=== PATIENT | male | born 1960 | race Hispanic/Latino ===

== ENCOUNTER → 2019-08-27 | Day surgery (SDC) | payer BC ==
--- NOTE | 2019-08-23 12:00 | NUR ---
Pt arrived in general good physical health with spousee for interview of scheduled procedure. [employer] offered and declined. Review of medical history and current medications. Procedural consent, pre-op orders, and Hibiclens bath education completed. All questions clarified and or answered where appropriate. pt verbalizes understanding to include day of procedure expectations. - cgf
[2019-08-23 12:46] LABS: BASOPHILS # (AUTO) 0.1 (0.0-0.1); BASOPHILS % 0.8 % (0.0-1.0); EOSINOPHILS # (AUTO) 0.2 (0.0-0.4); EOSINOPHILS % 2.7 % (0.0-6.0); HEMATOCRIT 46.9 % (38.2-49.6); HEMOGLOBIN 16.1 g/dL (14.0-18.0); LYMPHOCYTES # (AUTO) 2.1 (1.0-3.2); LYMPHOCYTES % 30.9 % (18.0-39.1); MEAN CORPUSCULAR HEMOGLOBIN 30.5 pg (28-32); MEAN CORPUSCULAR HGB CONC 34.3 g/dL (31-35); MEAN CORPUSCULAR VOLUME 88.8 fL (81-99); MONOCYTES # (AUTO) 0.5 (0.2-0.8); MONOCYTES % 7.7 % (4.4-11.3); NEUTROPHILS # (AUTO) 3.8 (2.1-6.9); NEUTROPHILS % 57.1 % (38.7-80.0); PLATELET COUNT 153 x10e3/uL (140-360); RED BLOOD COUNT 5.28 x10e6/uL (4.3-5.7); RED CELL DISTRIBUTION WIDTH 12.6 % (11.7-14.4)
[2019-08-23 12:58] LABS: ALANINE AMINOTRANSFERASE 41 IU/L (0-55); ALBUMIN 4.1 g/dL (3.5-5.0); ALBUMIN/GLOBULIN RATIO 1.3 (0.8-2.0); ALKALINE PHOSPHATASE 79 IU/L (40-150); ANION GAP 13.8 mmol/L (8-16); BLOOD UREA NITROGEN 19 mg/dL (7-26); BUN/CREATININE RATIO 22 (6-25); CALCIUM 9.4 mg/dL (8.4-10.2); CARBON DIOXIDE 25 mmol/L (22-29); CHLORIDE 100 mmol/L (98-107); CREATININE, SERUM 0.88 mg/dL (0.72-1.25); EST GLOMERULAR FILTRATION RATE > 60 ML/MIN (60-); GLUCOSE 142 mg/dL (74-118); POTASSIUM 4.8 mmol/L (3.5-5.1); SODIUM 134 mmol/L (136-145)
[~2019-08-27] VITALS: Ht 182.9 cm; Wt 101.6 kg
[2019-08-27] VITALS (11 sets, daily range): BP systolic 113–155; BP diastolic 66–86
[~2019-08-27] MED LIST: ACETAMINOPHEN 325 MG TAB ONE; ASPIR 8181 MG PO; ASPIRIN 325 MG TAB ONE; FENTANYL CITRATE/PF 100MCG/2 ML INJ ONE; FLOMAX0.4 MG PO; GLIMEPIRIDE2 MG PO; HEPARIN SOD/SOD CHLORIDE 2,000 ML ONE; IOPAMIDOL 370 MG/ML 200 ML INFUS..BTL INJ ONE; LIDOCAINE HCL 2% LOCAL 20 ML VIAL ONE; LOSARTAN POTASS25 MG PO; LOVASTATIN40 MG PO; MIDAZOLAM HCL 2 MG/2 ML VIAL ONE; SODIUM CHLORIDE 0.9% 1000ML 1,000 ML ONE
--- NOTE | 2019-08-27 10:45 | NUR ---
1045pt in #9, prepped for procedure. Alert oriented and appropriate, PERRLA, respirations even and unlabored to room air. Pulses x4 extremities . Pedal pulses PT/DP x4 Cap fill brisk < 3 sec. ok Tr band 1200n and dc at 1330pm Back to baseline orientation. Skin warm and dry integrity appears intact in general. IV Ns infusing at 100cchr and presents healthy w/o s/s of infiltration or complaint. Abdomen soft and supple. pt offered toileting, denies need to urinate or defecate. Personal affects with patient. Family at bedside. ds/rn
--- NOTE | 2019-08-27 12:00 | NUR ---
1200RADIAL Compression removal: Initial Cuff volume 12 cc 1200n -2cc Removed No hematoma/bleeding noted with normal neurovascular function. 1215 -5cc Removed No hematoma/ bleeding noted with normal neurovascular function. 1230 -5 cc Removed No hematoma/bleeding noted with normal neurovascular function. Air removal completed. Stasis achieved sterile 2x2,Tegaderm, Coban dressing No hematoma, bleeding noted with normal neurovascular function. Wrist splint in place. Pt instructed on POC. Ds/Rn
--- NOTE | 2019-08-27 13:30 | NUR ---
1330pt meets DC criteria. Jose Armando Sanchez assessed for s/s of complication and presence of hematoma. Skin warm, dry, no discolor, and pulses present. IV removed Distal tip appears intact. VS WNL. Pt denies pain, sob, or need at this time. Family at bedside Review of discharge paperwork and follow up instructions. verbalized understanding. Pt to wheelchair and transported to front of hospital. Transferred to private vehicle under own strength w/o incident with DC paperwork in hand. - ds/rn
--- NOTE | 2019-08-28 00:31 | Operative Report ---
DATE OF PROCEDURE: 08/27/2019 SURGEON: Darian Cabrera MD REPORT TITLE: Cardiology Progress Note. BODY AFTER REPORT TITLE: STUDY: Cardiac catheterization. PROCEDURE INDICATION: Chest pain and shortness of breath concerning for angina pectoris with abnormal stress test. PROCEDURES PERFORMED: 1. Left heart catheterization. 2. Selective coronary angiography. PROCEDURE SUMMARY: After consent was obtained, the patient was prepped and draped in a sterile fashion. The right radial site was locally infiltrated with 2% lidocaine and access was obtained. A 5-Nepali outer diameter slender sheath was advanced. A TIG catheter was used for engagement of left main and right coronary artery for more optimal engagement HB 3.5 catheter was used for left main and aortic valve was crossed for the pigtail catheter and hemodynamic measurements were noted. The following findings were observed. 1. LV pressure is 132/5 with end-diastolic pressure of 19. 2. Aortic pressure is 123/79. 3. Left ventricular systolic function is hyperdynamic 170% with normal regional wall motion. 4. Left main is large in caliber with luminal irregularities gives an LAD and a circumflex as well as a small caliber ramus intermedius. 5. The LAD has luminal irregularities throughout. It gives a couple diagonals and multiple septal perforators. 6. The ramus intermedius is small in caliber with luminal irregularities. 7. The circumflex is large in caliber with luminal irregularities and two obtuse marginals. 8. The right coronary artery is large in caliber with luminal irregularities. It gives an RV marginal in the midportion and a terminal RPDA and RPLV of small caliber. CONCLUSION: 1. No evidence of obstructive coronary artery disease with luminal irregularities noted throughout the coronary tree. 2. Continue medical management and wean TR band. Darian Carbera MD AFV/MODL /[id number]
== END | disposition home or self-care (01) ==
LOC: CATH LAB 07:01
PROVIDERS: ATTEND Internal Medicine Cardiovascular Disease
DX: R94.39 Abnormal result of other cardiovascular function study (principal); I20.9 Angina pectoris, unspecified; R07.9 Chest pain, unspecified; R42 Dizziness and giddiness; R06.02 Shortness of breath; E11.8 Type 2 diabetes mellitus with unspecified complications; E78.2 Mixed hyperlipidemia; E66.01 Morbid (severe) obesity due to excess calories; I10 Essential (primary) hypertension; I70.219 Atherosclerosis of native arteries of extremities with intermittent claudication, unspecified extremity; Z79.82 Long term (current) use of aspirin; Z82.49 Family history of ischemic heart disease and other diseases of the circulatory system; Z83.3 Family history of diabetes mellitus; Z01.812 Encounter for preprocedural laboratory examination; Z68.33 Body mass index [BMI] 33.0-33.9, adult; Z79.84 Long term (current) use of oral hypoglycemic drugs
CPT/HCPCS: 36415; 80053; 85025; 93458; C1887; J2001; J2250; J3010; J7030; Q9967; 99152